=== PATIENT | female | born 1975 | race Hispanic/Latino ===

== ENCOUNTER 2017-11-19 12:22 | Emergency (ER) | payer OTHER, SELFPAY ==
[2017-11-19] MEDS ORDERED: IBUPROFEN 200 MG TAB PO ONE (13:14)
[2017-11-19] MEDS ORDERED: IBUPROFEN 400 MG TAB ONE (13:14)
[2017-11-19 13:49] LABS: Urine Blood NEGATIVE (NEG); Urine Glucose NEGATIVE (NEG); Urine Protein NEGATIVE (NEG); Urine Specific Gravity >1.030 (1.005-1.030)
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
== END 2017-11-19 14:35 | disposition home or self-care (01) ==
LOC: ER 12:22
DX: M54.5 Low back pain (principal); E11.40 Type 2 diabetes mellitus with diabetic neuropathy, unspecified; V49.50XA Passenger injured in collision with unspecified motor vehicles in traffic accident, initial encounter; Y92.410 Unspecified street and highway as the place of occurrence of the external cause; M79.1 Myalgia
CPT/HCPCS: 72131; 81003; 81025; 99284

== ENCOUNTER 2020-09-01 22:51 | Emergency (ER) | payer BC ==
--- OUTSIDE RECORDS SUMMARY | 2020-09-01 22:54 | XMS REPORT | Continuity of Care Document ---
:1975 Author Organization [facility] t Address [facility] [address] [place] [address] Care Team Providers Name Role Phone Unavailable Unavailable Unavailable Problems Condition Condition Condition Status Onset Resolution Last Treating Co mments Source Name Details Category Date Date Treatment Clinician Date Cough Cough Problem [facility] Acute Acute Problem Active [facility] nasopharyn nasopharyn Rhonda kes - gitis gitis Memoria [common [common l cold] cold[facility] Type 2 Type [address] [facility] diabetes diabetes [facility] - mellitus mellitus Memori a without without l complicati complicati Ou tpati on, on, ent without without Clinics long-term long-term current current use of use of insulin insulin Encounter Encounter Diagnosis Active [facility] for PPD for PPD [facility] Influenza Influenza Diagnosis Active [facility] vaccine vaccine [facility] - administer administer Me moria ed ed l [facility] Allergies, Adverse Reactions, Alerts This patient has no known allergies or adverse reactions. Medications Ordered Filled Start Stop Current Ordering Indication Dosage Frequency Signature Comments Components Source Medication Medication Date Date Medication? Clinician (SIG) Name Name [facility] [place] [address] 2019-0 2020- No José [address] [facility]07[facility]19 [facility] 00[facility]: [facility] Metformin Metformin Yes José [address] [facility] HCl HCl Chris with a [facility] Vitamin B1 Vitamin B1 Yes José [address] [facility] Vitamin B12 Vitamin B12 Yes José [address] [facility] Vitamin D Vitamin D Yes José [address] [facility] (Ergocalcif (Ergocalcif [facility] - lucita) lucita) [facility] Immunizations Ordered Filled Immunization Date Status Comments Sour e Immunization Name Name Tb PPD intradermal, Tb PPD intradermal, 2018-07-[address] [facility] - 00:[facility]00 [facility] TB PPD TB PPD 2018-07-[address] [facility] - 00:[facility]:00 [facility] Flucelvax - Flucelvax - 2018-07-[address] [facility] - multidose vial multidose vial 00:00:00 [facility] Procedures This patient has no known procedures. Encounters Start End Encounter Admission Attending Care Care Encounter Source Date/Time Date/Time Type Type Clinicians Facility Department ID 2018-08-11 2018-08-11 Outpatient Karla [facility] [id number] [facility] 13:45[facility]00 13:45:00 [facility] 2018-07-30 2018-07-30 [facility] [id number] [facility] 14:00[facility]00 14:00:00 [facility] 2018-07-28 2018-07-28 [facility] [id number] [address] 10:00[facility]00 10:00[facility]00 [facility] 2018-07-24 2018-07-24 [facility] [id number] 11:15:00 11:15:00 [facility] Results This patient has no known results.
--- NOTE | 2020-09-02 00:38 | ER ---
Nurse's Notes [facility] Name: Brenda Mcfadden Age: 45 yrs Sex: Female : 1975 Arrival Date: 09/01/2020 Time: 22:53 Bed 20 Private MD: Diagnosis: Allergy, unspecified Presentation: 09/01 23:11 Chief complaint: Patient states: she received the Moderna vaccine on Saturday and didn't bb take her Januvia until tonight after which she started feeling like her throat is closing at approx 2030 symptoms seemed to have improved a little since then. Coronavirus screen: At this time, the client does not indicate any symptoms associated with coronavirus-19. Ebola Screen: No symptoms or risks identified at this time. Initial Sepsis Screen: Does the patient meet any 2 criteria? No. Patient's initial sepsis screen is negative. Does the patient have a suspected source of infection? No. Patient's initial sepsis screen is negative. Risk Assessment: Do you want to hurt yourself or someone else? Patient reports no desire to harm self or others. Onset of symptoms was September 01, 2020. 23:11 Method Of Arrival: Ambulatory bb 23:11 Acuity: CHRIS 3 bb Triage Assessment: 23:14 General: Appears in no apparent distress. Behavior is calm, cooperative. Pain: Denies bb pain. EENT: Throat is clear. Respiratory: Airway is patent Respiratory effort is even, unlabored, Respiratory pattern is regular. 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 - Social history:: Smoking status: Patient denies any tobacco usage or history of. Patient uses alcohol, occasionally. Patient/guardian denies using street drugs. - Family history:: not pertinent. Screenin/02 00:30 Abuse screen: Denies threats or abuse. Denies injuries from another. Nutritional wh screening: No deficits noted. Tuberculosis screening: No symptoms or risk factors identified. Fall Risk None identified. Assessment: 00:20 General: Appears in no apparent distress. Behavior is calm, cooperative, appropriate wh for age. Pain: Denies pain. Neuro: Level of Consciousness is awake, alert, obeys commands, Oriented to person, place, time, situation, Appropriate for age. Cardiovascular: Heart tones S1 S2. Respiratory: Airway is patent Respiratory effort is even, unlabored, Respiratory pattern is regular, symmetrical, Breath sounds are clear bilaterally. GI: Abdomen is flat, non-distended. : No signs and/or symptoms were reported regarding the genitourinary system. EENT: Throat is pink. Derm: Skin is intact, is healthy with good turgor, Skin is pink, warm \T\ dry. normal. Musculoskeletal: Circulation, motion, and sensation intact. Vital Signs: 09/01 23:11 BP 124 / 76; Pulse 98; Resp 16 S; Temp 98.4(O); Pulse Ox 98% on R/A; Weight 81.65 kg bb (R); Height 5 ft. 0 in. (152.40 cm) (R); Pain 0/10; 09/02 01:00 BP 118 / 74; Pulse 92; Resp 18; Pulse Ox 98% on R/A; wh 09/01 23:11 Body Mass Index 35.15 (81.65 kg, 152.40 cm) ED Course: 09/01 22:53 Patient arrived in ED. cf2 23:13 Triage completed. 23:14 Arm band placed on Patient placed in waiting room, Patient notified of wait time. 09/02 00:26 Rogelio Teague MD is Attending Physician. [facility] 00:30 Patient has correct armband on for positive identification. Bed in low position. Call light in reach. Side rails up X 1. Pulse ox on. NIBP on. 01:08 Aminata Saenz, RN is Primary Nurse. 01:20 No provider procedures requiring assistance completed. Patient did not have IV access during this emergency room visit. Administered Medications: 01:09 Drug: Benadryl (diphenhydrAMINE) 50 mg {Note: Pt only took 1 tab.} Route: PO; 01:20 Follow up: Response: No adverse reaction 01:09 Not Given (Patient Refused): Pepcid (famotidine) 20 mg PO once 01:09 Not Given (Patient Refused): predniSONE 40 mg PO once Outcome: 00:37 Discharge ordered by . jaziel 01:20 Discharged to home ambulatory. 01:20 Condition: stable 01:20 Discharge instructions given to patient, Instructed on discharge instructions, follow up and referral plans. medication usage, POC Demonstrated understanding of instructions, follow-up care, medications, POC Prescriptions given X 3. 01:21 Patient left the ED. Signatures: Rogelio Teague MD MD cha Ballard, Brenda, RN RN Aminata Saenz RN RN Ke Henderson cf2
--- NOTE | 2020-09-02 00:38 | EDPHYS ---
Physician Documentation [facility] Name: Brenda Mcfadden Age: 45 yrs Sex: Female : 1975 Arrival Date: 09/01/2020 Time: 22:53 Bed 20 Private MD: ED Physician Rogelio Teague HPI: 09/02 00:31 This 45 yrs old Female presents to ER via Ambulatory with complaints of FEELS jaziel LIKE HER THROAT IS CLOSING UP. 00:31 The patient presents with difficulty swallowing, itching. Onset: The symptoms/episode jaziel began/occurred just prior to arrival. Associated signs and symptoms: Pertinent positives: hives, rash, swelling. Possible causes: JANUVIA. At home the patient or guardian has treated the symptoms with nothing. Severity of symptoms: At their worst the symptoms were mild in the emergency department the symptoms have improved moderately. The patient has not experienced similar symptoms in the past. 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 - Social history:: Smoking status: Patient denies any tobacco usage or history of. Patient uses alcohol, occasionally. Patient/guardian denies using street drugs. - Family history:: not pertinent. ROS: 09/02 00:31 Constitutional: Negative for fever, chills, and weight loss, Eyes: Negative for injury, jaziel pain, redness, and discharge, Neck: Negative for injury, pain, and swelling, Cardiovascular: Negative for chest pain, palpitations, and edema, Respiratory: Negative for shortness of breath, cough, wheezing, and pleuritic chest pain, Abdomen/GI: Negative for abdominal pain, nausea, vomiting, diarrhea, and constipation, Back: Negative for injury and pain, : Negative for injury, bleeding, discharge, and swelling, MS/Extremity: Negative for injury and deformity, Skin: Negative for injury, rash, and discoloration, Neuro: Negative for headache, weakness, numbness, tingling, and seizure, Psych: Negative for depression, anxiety, suicide ideation, homicidal ideation, and hallucinations, Allergy/Immunology: Negative for hives, rash, and allergies, Endocrine: Negative for neck swelling, polydipsia, polyuria, polyphagia, and marked weight changes, Hematologic/Lymphatic: Negative for swollen nodes, abnormal bleeding, and unusual bruising. ENT: Positive for difficulty swallowing. Exam: 00:31 Constitutional: This is a well developed, well nourished patient who is awake, alert, jaziel and in no acute distress. Head/Face: Normocephalic, atraumatic. Eyes: Pupils equal round and reactive to light, extra-ocular motions intact. Lids and lashes normal. Conjunctiva and sclera are non-icteric and not injected. Cornea within normal limits. Periorbital areas with no swelling, redness, or edema. ENT: Nares patent. No nasal discharge, no septal abnormalities noted. Tympanic membranes are normal and external auditory canals are clear. Oropharynx with no redness, swelling, or masses, exudates, or evidence of obstruction, uvula midline. Mucous membranes moist. Neck: Trachea midline, no thyromegaly or masses palpated, and no cervical lymphadenopathy. Supple, full range of motion without nuchal rigidity, or vertebral point tenderness. No Meningismus. Chest/axilla: Normal chest wall appearance and motion. Nontender with no deformity. No lesions are appreciated. Cardiovascular: Regular rate and rhythm with a normal S1 and S2. No gallops, murmurs, or rubs. Normal PMI, no JVD. No pulse deficits. Respiratory: Lungs have equal breath sounds bilaterally, clear to auscultation and percussion. No rales, rhonchi or wheezes noted. No increased work of breathing, no retractions or nasal flaring. Abdomen/GI: Soft, non-tender, with normal bowel sounds. No distension or tympany. No guarding or rebound. No evidence of tenderness throughout. Back: No spinal tenderness. No costovertebral tenderness. Full range of motion. Skin: Warm, dry with normal turgor. Normal color with no rashes, no lesions, and no evidence of cellulitis. MS/ Extremity: Pulses equal, no cyanosis. Neurovascular intact. Full, normal range of motion. Neuro: Awake and alert, GCS 15, oriented to person, place, time, and situation. Cranial nerves II-XII grossly intact. Motor strength 5/5 in all extremities. Sensory grossly intact. Cerebellar exam normal. Normal gait. Psych: Awake, alert, with orientation to person, place and time. Behavior, mood, and affect are within normal limits. Vital Signs: 09/01 23:11 BP 124 / 76; Pulse 98; Resp 16 S; Temp 98.4(O); Pulse Ox 98% on R/A; Weight 81.65 kg bb (R); Height 5 ft. 0 in. (152.40 cm) (R); Pain 0/10; 09/02 01:00 BP 118 / 74; Pulse 92; Resp 18; Pulse Ox 98% on R/A; wh 09/01 23:11 Body Mass Index 35.15 (81.65 kg, 152.40 cm) bb MDM: 00:26 Patient medically screened. jaziel 00:31 Differential diagnosis: anaphylaxis, angioedema, bronchospasm, urticaria. Data jaziel reviewed: vital signs, nurses notes. 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 Counseling: I had a detailed discussion with the patient and/or guardian regarding: the historical points, exam findings, and any diagnostic results supporting the discharge/admit diagnosis, the need for outpatient follow up, for definitive care, an allergy/crime specialist, a family practitioner. Administered Medications: 01:09 Drug: Benadryl (diphenhydrAMINE) 50 mg {Note: Pt only took 1 tab.} Route: PO; 01:20 Follow up: Response: No adverse reaction 01:09 Not Given (Patient Refused): Pepcid (famotidine) 20 mg PO once :09 Not Given (Patient Refused): predniSONE 40 mg PO once Disposition: 09/02/20 00:37 Discharged to Home. Impression: Allergy, unspecified. - Condition is Stable. - Discharge Instructions: Food Allergy, Food Allergy, [id number], Allergy Skin Testing. - Prescriptions for Benadryl 25 mg Oral Capsule - take 1 capsule by ORAL route every 6 hours As needed; 30 tablet. Pepcid 20 mg Oral Tablet - take 1 tablet by ORAL route every 12 hours for 10 days; 20 tablet. Prednisone 20 mg Oral Tablet - take 2 tablet by ORAL route once daily for 5 days; 10 tablet. EpiPen 0.3 mg Injection auto- injector - inject 1 pen by INTRAMUSCULAR route as directed Inject into the outer portion of the thigh, through clothing if necessary. Indicated in the emergency treatment of allergic reactions; 1 Cartridge. - Medication Reconciliation Form, Thank You Letter, Antibiotic Education, Prescription Opioid Use form. - Follow up: Private Physician; When: 2 - 3 days; Reason: Recheck today's complaints, Continuance of care, Re-evaluation by your physician. - Problem is new. - Symptoms have improved. Signatures: Rogelio Teague MD MD cha Ballard, Brenda, RN RN Aminata Saenz RN RN Corrections: (The following items were deleted from the chart) 01:21 00:37 09/02/2020 00:37 Discharged to Home. Impression: Allergy, unspecified. Condition wh is Stable. Forms are Medication Reconciliation Form, Thank You Letter, Antibiotic Education, Prescription Opioid Use. Follow up: Private Physician; When: 2 - 3 days; Reason: Recheck today's complaints, Continuance of care, Re-evaluation by your physician. Problem is new. Symptoms have improved. jaziel
[2020-09-02] MEDS ORDERED: DIPHENHYDRAMINE 25 MG TAB/CAP ONE (01:14)
[2020-09-02] MEDS ORDERED: predniSONE 20 MG TAB ONE (01:14)
[2020-09-02] MEDS ORDERED: FAMOTIDINE 20 MG TAB ONE (01:15)
[2020-09-02 20:48] VITALS: TEMP 98.4; O2SAT 98
[2020-09-02 20:51] VITALS: BP 118/74
== END 2020-09-02 01:21 | disposition home or self-care (01) ==
LOC: ER 22:51
DX: R13.10 Dysphagia, unspecified (principal); R21 Rash and other nonspecific skin eruption; L29.9 Pruritus, unspecified; E11.40 Type 2 diabetes mellitus with diabetic neuropathy, unspecified
CPT/HCPCS: 99283; J7512